=== PATIENT | female | born 1940 | race Caucasian/White ===

== ENCOUNTER 2023-11-17 14:00 | Observation (INO) | payer MEDICARE, OTHER, SELFPAY ==
[2023-11-17] VITALS (32 sets, daily range): BP systolic 101–144; BP diastolic 58–78; PULSE 59–83; TEMP 36.3–36.8; O2SAT 94–100; BMI 27.4; BMI 20.2
--- NOTE | 2023-11-17 14:15 | CT_ITS ---
The [address] [address] Patient Name: CHARIS ALLAN MRN: [id number] date: 1940 Sex: F Assigned Patient Location: ED.MAIN Current Patient Location: Accession/Order Number: [id number] Exam Date: 11/17/2023 15:13 Report Date: 11/17/2023 15:41 At the request of: MADAN MEDELLIN Procedure: CT cervical spine wo con EXAMINATION: CT cervical spine wo con HISTORY: fall with injury COMPARISON: No relevant comparison available. TECHNIQUE: Axial, Coronal, and Sagittal images were created without IV contrast. Dose reduction techniques were achieved by using automated exposure control and/or adjustment of mA and/or kV according to patient size and/or use of iterative reconstruction technique. FINDINGS: VERTEBRAL BODIES: No fracture, bone lesion, or significant listhesis. FACET JOINTS: Marked degenerative facet arthropathy C3 on 4, C4-5 the right. Multilevel moderate degenerative changes. No disruption or abnormal widening. DISCS: Marked narrowing C5-6, C6-7 with prominent posterior disc osteophyte complexes resulting in central canal and foraminal stenosis, marked at C5-6. CENTRAL CANAL: No evidence of hemorrhage. PARASPINAL AREA: No visible mass. CT/CT cervical spine wo con IMPRESSION: 1. No convincing acute abnormality. 2. Moderate to marked degenerative changes of cervical spine with marked central canal and foraminal stenosis at C5-6 secondary to degenerative disc disease and facet arthropathy. Electronically authenticated by: SIRI DUNAWAY Date: 11/17/2023 15:41
--- NOTE | 2023-11-17 14:15 | XR_ITS ---
The [address] [address] Patient Name: CHARIS ALLAN MRN: [id number] date: 1940 Sex: F Assigned Patient Location: ER Current Patient Location: ER Accession/Order Number: [id number] Exam Date: 11/17/2023 15:34 Report Date: 11/17/2023 15:57 At the request of: MADAN MEDELLIN Procedure: XR femur RT 2V PROCEDURE: XR hip RT 2V w/ pelvis, XR femur RT 2V HISTORY: pain fall ; hip pain COMPARISON: None. FINDINGS: BONES:Fracture of the superior and inferior right pubic ramus near the symphysis. Narrowing of the hip joint spaces bilaterally with degenerative osteophytes along the superior rim of the acetabulum bilaterally. SOFT TISSUES:No visible soft tissue swelling. EFFUSION:None visible. OTHER: Negative. XR/XR femur RT 2V IMPRESSION: 1. Acute, mildly displaced fractures involving the right superior and inferior pubic rami. 2. Degenerative changes of the right hip joint. Electronically authenticated by: SIRI DUNAWAY Date: 11/17/2023 15:57
--- NOTE | 2023-11-17 14:15 | ECG_ITS ---
The [facility] Test Date: 2023-11-17 Pat Name: Lindsey Whitlock Department: Room: - Gender: Female [employer]: : 1940 Requested By: Order Number: [id number] Reading MD: MELECIO GE Measurements Intervals [place] Rate: 61 P: 53 MD: 146 QRS: -59 QRSD: 82 T: 62 QT: 400 QTc: 403 Interpretive Statements 1100 Sinus rhythm 1570 with occasional ventricular premature complexes 3433 Septal myocardial infarction, probably old 7200 Abnormal left axis deviation 9150 abnormal ECG Compared to ECG 08/20/2017 08:48:12 Electronically Signed On 11-17-2023 22:55:14 EDT by MELECIO GE
--- NOTE | 2023-11-17 14:15 | XR_ITS ---
The [address] [address] Patient Name: CHARIS ALLAN MRN: [id number] date: 1940 Sex: F Assigned Patient Location: ER Current Patient Location: ER Accession/Order Number: [id number] Exam Date: 11/17/2023 15:34 Report Date: 11/17/2023 15:57 At the request of: MADAN MEDELLIN Procedure: XR hip RT 2V w/ pelvis PROCEDURE: XR hip RT 2V w/ pelvis, XR femur RT 2V HISTORY: pain fall ; hip pain COMPARISON: None. FINDINGS: BONES:Fracture of the superior and inferior right pubic ramus near the symphysis. Narrowing of the hip joint spaces bilaterally with degenerative osteophytes along the superior rim of the acetabulum bilaterally. SOFT TISSUES:No visible soft tissue swelling. EFFUSION:None visible. OTHER: Negative. XR/XR hip RT 2V w/ pelvis IMPRESSION: 1. Acute, mildly displaced fractures involving the right superior and inferior pubic rami. 2. Degenerative changes of the right hip joint. Electronically authenticated by: SIRI DUNAWAY Date: 11/17/2023 15:57
--- NOTE | 2023-11-17 14:15 | CT_ITS ---
The [address] [address] Patient Name: CHARIS ALLAN MRN: [id number] date: 1940 Sex: F Assigned Patient Location: ED.MAIN Current Patient Location: Accession/Order Number: [id number] Exam Date: 11/17/2023 15:13 Report Date: 11/17/2023 15:52 At the request of: MADAN MEDELLIN Procedure: CT head/brain wo con CT HEAD WITHOUT CONTRAST, 11/17/2023. HISTORY: Fall. Head injury. COMPARISON: None. TECHNIQUE: Noncontrast axial CT images obtained through the head. Reconstructions in sagittal and coronal planes. Dose reduction techniques were achieved by using automated exposure control and/or adjustment of mA and/or kV according to patient size and/or use of iterative reconstruction technique. FINDINGS: The paranasal sinuses are clear. Mastoid air cells are clear. No skull fracture. Nasopharynx is normal. Prior cataract surgery. Extracranial soft tissue structures are unremarkable. Mild generalized brain atrophy. No hydrocephalus. No mass effect. No shift of midline. No acute hemorrhage. No mass. Shi matter and white matter differentiation is intact. CT/CT head/brain wo con IMPRESSION: 1. No acute findings. No intracranial hemorrhage. No skull fracture. 2. Mild brain atrophy. Electronically authenticated by: TRACY CONNOR Date: 11/17/2023 15:52
[2023-11-17 14:47] LABS: Basophils Percent Auto 0.3 % (0.2-2.0); Eosinophils Absolute Auto 0.1 10^3/uL (0.0-0.7); Eosinophils Percent Auto 0.5 % (0.9-7.0); Hematocrit 36.7 % (36.0-48.0); Hemoglobin 12.2 g/dL (12.0-16.0); Immature Granulocytes Abs Auto 0.08 10^3/uL (0.00-0.03); Immature Granulocytes Pct Auto 0.8 % (0.0-0.5); Lymphocytes Absolute Auto 1.9 10^3/uL (1.2-3.8); Lymphocytes Percent Auto 17.7 % (20.5-60.0); Mean Corpuscular HGB Conc 33.2 g/dL (29.9-35.2); Mean Corpuscular Hemoglobin 31.3 pg (26.7-34.0); Mean Corpuscular Volume 94.1 fL (81.0-99.0); Mean Platelet Volume 10.2 fL (9.5-13.5); Monocytes Absolute Auto 0.6 10^3/uL (0.3-0.8); Monocytes Percent Auto 5.3 % (1.7-12.0); Neutrophils Percent Auto 75.4 % (43.0-75.0); Platelet Count 193 10^3/uL (150-450); Red Cell Distribution Width 12.9 % (11.0-15.0); White Blood Count 10.5 10^3/uL (4.0-11.0)
[2023-11-17] MEDS: ACETAMINOPHEN 1,000 MG/100 ML PREMIX 400 MG IV (14:51)
[2023-11-17 15:05] LABS: Alanine Aminotransferase 25 U/L (14-59); Alkaline Phosphatase 43 U/L (46-116); Anion Gap 12.7; Aspartate Amino Transferase 30 U/L (15-37); Calcium 9.3 mg/dL (8.5-10.1); Carbon Dioxide 24.6 mmol/L (21.0-32.0); Chloride 108 mmol/L (98-107); Estimated GFR (African America >60 (>=60); Estimated GFR (Non-African Ame 53 (>=60); Globulin 3.1 g/dL; Glucose 152 mg/dL (74-106); Potassium 5.3 mmol/L (3.5-5.1); Sodium 140 mmol/L (136-145); Total Protein 6.1 g/dL (6.4-8.2)
[2023-11-17 15:21] LABS: INR 1.04; Partial Thromboplastin Time 25.1 sec (22.3-36.2)
--- NOTE | 2023-11-17 16:52 | XR_ITS ---
The [address] [address] Patient Name: CHARIS ALLAN MRN: [id number] date: 1940 Sex: F Assigned Patient Location: ED.MAIN Current Patient Location: MS Accession/Order Number: [id number] Exam Date: 11/17/2023 17:15 Report Date: 11/17/2023 18:45 At the request of: MADAN MEDELLIN Procedure: XR ankle RT 2V EXAM: XR ankle RT 2V HISTORY: pain, fall COMPARISON: None. TECHNIQUE: AP and lateral views of the right ankle were obtained. FINDINGS: There is no evidence of an acute fracture or dislocation. The mortise is intact. No osteochondral injury is identified. The subtalar joints are intact. Diffuse osteopenia is noted. Soft tissues appear grossly intact. XR/XR ankle RT 2V IMPRESSION: No apparent acute fracture or dislocation. The joint spaces are intact. Electronically authenticated by: OSVALDO LIRA Date: 11/17/2023 18:45
--- NOTE | 2023-11-17 18:05 | ED_ITS ---
HPI HPI - General Adult General Chief complaint: Extremity Injury, Lower Stated complaint: FALL/POSSIBLE HIP INJURY Time Seen by Provider: 11/17/23 14:08 Source: patient Mode of arrival: ambulance Limitations: no limitations History of Present Illness HPI narrative: 82-year-old female to the emergency department accidental fall. Patient reports she tripped on a runner she had near the front door and fell onto her right side. She reports pain in her right-sided pelvis. She denies any neck or back pain. She did hit her head. She is not a blood thinners. She has no other complaints. She could not walk due to pain in her right hip after the injury. She is otherwise been at her baseline health. Related Data Home Medications ?Medication ?Instructions ?Recorded ?Confirmed buspirone 15 mg tablet 15 mg PO Q12H 11/17/23 11/17/23 glimepiride 2 mg tablet 2 mg PO DAILY 11/17/23 11/17/23 hydrochlorothiazide 12.5 mg capsule 12.5 mg PO DAILY 11/17/23 11/17/23 metoprolol succinate 50 mg 50 mg PO DAILY 11/17/23 11/17/23 tablet,extended release 24 hr pravastatin 20 mg tablet 20 mg PO DAILY 11/17/23 11/17/23 sertraline 50 mg tablet 75 mg PO Q24H 11/17/23 11/17/23 trazodone 50 mg tablet 50 mg PO Q24H PRN sleep 11/17/23 11/17/23 Allergies Allergy/AdvReac Type Severity Reaction Status Date / Time clarithromycin Allergy Severe Hives Verified 11/17/23 14:33 aspirin Allergy Intermediate Palpitation Verified 11/17/23 14:33 s atorvastatin Allergy Intermediate Unknown Verified 11/17/23 14:33 calcium Allergy Intermediate Unknown Verified 11/17/23 14:33 acetaminophen [From Percocet] AdvReac Severe Unknown Verified 11/17/23 14:33 cephalexin [From Keflex] AdvReac Severe Rash Verified 11/17/23 14:33 hydrogen peroxide AdvReac Severe Blister Verified 11/17/23 14:33 ibandronate sodium AdvReac Severe Abdominal Verified 11/17/23 14:33 Pain iodine AdvReac Severe Unknown Verified 11/17/23 14:33 iron AdvReac Severe Abdominal Verified 11/17/23 14:33 Pain meclizine AdvReac Severe Nausea Verified 11/17/23 14:33 oxybutynin AdvReac Severe Abdominal Verified 11/17/23 14:33 Pain oxycodone [From Percocet] AdvReac Severe Unknown Verified 11/17/23 14:33 Penicillins AdvReac Severe Rash Verified 11/17/23 14:33 Sulfa (Sulfonamide AdvReac Severe Rash Verified 11/17/23 14:33 Antibiotics) tetanus toxoid, adsorbed AdvReac Severe Unknown Verified 11/17/23 14:33 alendronate sodium AdvReac Mild Abdominal Verified 11/17/23 14:33 Pain Opioid HPI Opioid Management Most Recent Opioid Data: Last Pain Scale 2 11/17/23 16:30 Last ED Pain Assessment 11/17/23 16:30 Review of Systems ROS Status of ROS 10 or more systems reviewed and unremark able except as noted in history and below Exam Narrative Exam Narrative: Primary Survey Airway Intact Lung sounds clear and equal bilaterally Pulses full and equal to femoral, radial, and dorsalis pedis bilaterally Heart regular rate and rhythm Skin warm, dry, pink GCS 15 Movement and sensation intact to all extremities Patient Fully Exposed. Tenderness to the right-sided hip/pelvis. Scattered bruises. Secondary Survey General: GCS 15; Alert HEENT: Head atraumatic; Facial bones stable; Eyes normal inspection, Pupils round, 4-2mm blt; No evidence of oropharyngeal trauma; No blood in the nares or septal hematoma; Tympanic Membranes intact, no hemotympanum or drainage Neck: Normal inspection; no midline cervical tenderness; No tracheal deviation; No JVD Resp: Normal breath sounds, no wheeze or crackles; No chest wall tenderness, crepitus, or subcutaneous emphysema; No visible evidence of chest wall trauma; Chest rise symmetric; No respiratory distress Heart: Heart rate and rhythm regular; Carotid, radial, femoral, dorsalis pedis pulses +2 and equal bilaterally; No Murmurs Abdomen: Soft; Non-tender No ecchymosis or visible wounds to abdominal wall; No distention, guarding, rigidity, or rebound; Pelvis stable, no pain on compression MSK: Tenderness to the right hip and decreased range of motion, otherwise all major joints with normal ROM. No deformities. No bony tenderness. No tenderness or step-offs to palpation of thoracic or lumbar spine; No ecchymosis or wounds to upper or lower back Neuro: Alert and oriented; Sensation intact and symmetric bilaterally; muscle strengths symmetric bilaterally in the upper and lower extremities. Skin: Color normal; No rash; Warm; Dry Constitutional Vital Signs, click to edit/add: Last Vital Signs Temp 98.3 F 11/17/23 14:04 Pulse 73 11/17/23 17:55 Resp 20 11/17/23 17:55 BP 115/63 11/17/23 17:55 Pulse Ox 97 11/17/23 17:55 O2 Del Method Room Air 11/17/23 14:04 Course Vital Signs Vital signs: Vital Signs Blood Pressure 144/78 H 11/17/23 14:03 Temperature 98.3 F 11/17/23 14:04 Pulse Rate 73 11/17/23 17:55 Respiratory Rate 20 11/17/23 17:55 Blood Pressure 115/63 11/17/23 17:55 Pulse Oximetry 97 11/17/23 17:55 Oxygen Delivery Method Room Air 11/17/23 14:04 Medical Decision Making [facility] Narrative Medical decision making narrative: 82-year-old female to the emergency department with chief complaint of right hip pain after fall. Vital stable, the patient is afebrile. Given her advanced age cannot rule out her head or cervical spine by clinical decision rules alone therefore CT scans were ordered. X-ray of the right hip and pelvis is ordered. X-ray of the femur is ordered as she does have a prosthesis below as well at the knee. Lab work reviewed and noted or abnormalities. CT head: Negative CT C-spine: Negative X-ray pelvis/hip: No hip fracture. She does have inferior and superior pubic rami fractures. X-ray ankle: Negative Findings were discussed with the patient and her family. Her pain was well- controlled with IV Tylenol. I discussed the case with the on-call orthopedic surgeon Dr. Tellez, weightbearing as tolerated. Unfortunately the patient cannot bear weight at this time. She lives alone. She will need admission for PT OT evaluation and likely rehab placement. Case discussed with the hospitalist who agrees admit this patient to his service. [facility] DATA #415 - Emergency Medicine: Utilization of CT for Minor Blunt Head Trauma (Adult) [x] Patient is 18 or older, presenting with minor blunt head trauma. Head CT (including cosigned orders) was ordered by an emergency client care consultant for trauma because (select one or more): [SATISFIES MIPS PERFORMANCE] Reasons: [x] Patient is 65 or older Medical Records Medical records reviewed: Yes I reviewed the patient's medical records Lab Data Lab results reviewed: Yes I reviewed the patient's lab results Labs: Lab Results 11/17/23 11/17/23 Range/Units 14:36 14:40 WBC 10.5 (4.0-11.0) 10^3/uL RBC 3.90 L (4.20-5.40) 10^6/uL Hgb 12.2 (12.0-16.0) g/dL Hct 36.7 (36.0-48.0) % MCV 94.1 (81.0-99.0) fL MCH 31.3 (26.7-34.0) pg MCHC 33.2 (29.9-35.2) g/dL RDW 12.9 (11.0-15.0) % Plt Count 193 (150-450) 10^3/uL MPV 10.2 (9.5-13.5) fL Neut % (Auto) 75.4 H (43.0-75.0) % Lymph % (Auto) 17.7 L (20.5-60.0) % [place] % (Auto) 5.3 (1.7-12.0) % Eos % (Auto) 0.5 L (0.9-7.0) % Baso % (Auto) 0.3 (0.2-2.0) % Neut # (Auto) 8.0 H (1.4-6.5) 10^3/uL Lymph # (Auto) 1.9 (1.2-3.8) 10^3/uL [place]lee # (Auto) 0.6 (0.3-0.8) 10^3/uL Eos # (Auto) 0.1 (0.0-0.7) 10^3/uL Baso # (Auto) 0.0 (0.0-0.1) 10^3/uL Abs Immat Gran (auto) 0.08 H (0.00-0.03) 10^3/uL Imm/Tot Granulo (auto) 0.8 H (0.0-0.5) % PT 11.0 (9.0-11.6) sec INR 1.04 APTT 25.1 (22.3-36.2) sec Sodium 140 (136-145) mmol/L Potassium 5.3 H (3.5-5.1) mmol/L Chloride 108 H (98-107) mmol/L Carbon Dioxide 24.6 (21.0-32.0) mmol/L Anion Gap 12.7 BUN 20.0 H (7.0-18.0) mg/dL Creatinine 1.00 (0.55-1.02) mg/dL Est GFR ( Amer) >60 (>=60) Est GFR (Non-Af Amer) 53 L (>=60) BUN/Creatinine Ratio 20.0 Glucose 152 H (74-106) mg/dL Calcium 9.3 (8.5-10.1) mg/dL Total Bilirubin 1.0 (0.2-1.0) mg/dL AST 30 (15-37) U/L ALT 25 (14-59) U/L Alkaline Phosphatase 43 L (46-116) U/L Total Protein 6.1 L (6.4-8.2) g/dL Albumin 3.0 L (3.4-5.0) g/dL Globulin 3.1 g/dL Albumin/Globulin Ratio 1.0 Imaging Data Imaging: Radiologist's impression: ITS Impressions Cervical Spine CT 11/17/23 14:15 IMPRESSION: 1. No convincing acute abnormality. 2. Moderate to marked degenerative changes of cervical spine with marked central canal and foraminal stenosis at C5-6 secondary to degenerative disc disease and facet arthropathy. Electronically authenticated by: SIRI DUNAWAY Date: 11/17/2023 15:41 Femur X-Ray 11/17/23 14:15 IMPRESSION: 1. Acute, mildly displaced fractures involving the right superior and inferior pubic rami. 2. Degenerative changes of the right hip joint. Electronically authenticated by: SIRI DUNAWAY Date: 11/17/2023 15:[address] 11/17/23 14:15 IMPRESSION: 1. No acute findings. No intracranial hemorrhage. No skull fracture. 2. Mild brain atrophy. Electronically authenticated by: TRACY CONNOR Date: 11/17/2023 15:52 Hip/Pelvis X-Ray 11/17/23 14:15 IMPRESSION: 1. Acute, mildly displaced fractures involving the right superior and inferior pubic rami. 2. Degenerative changes of the right hip joint. Electronically authenticated by: SIRI DUNAWAY Date: 11/17/2023 15:57 ECG Data Attestation: I personally reviewed and interpreted this ECG as follows: (Normal sinus rhythm at a rate of 61. No STEMI. Normal QTc at 403.) Discharge Plan Discharge Chief Complaint: Extremity Injury, Lower Clinical Impression: Closed pelvic fracture, Accidental fall, Ambulatory dysfunction Patient Disposition: Admitted as Observation Condition: Fair Prescriptions / Home Meds: No Action buspirone 15 mg tablet 15 mg PO Q12H glimepiride 2 mg tablet 2 mg PO DAILY hydrochlorothiazide 12.5 mg capsule 12.5 mg PO DAILY metoprolol succinate 50 mg tablet extended release 24 hr 50 mg PO DAILY pravastatin 20 mg tablet 20 mg PO DAILY sertraline 50 mg tablet 75 mg PO Q24H trazodone 50 mg tablet 50 mg PO Q24H PRN (Reason: sleep) Print Language: Hungarian Referrals: RAMÓN CINTRON [Primary Care Provider] - 1 week
--- NOTE | 2023-11-17 20:17 | PM.ORCN ---
History of Present Illness HPI Consult date: 11/17/23 Chief complaint: FALL/POSSIBLE HEAD INJURY Public rami fracture Narrative: Patient is an 82-year-old female that presented to the ER today status post mechanical fall. She states that she fell over a rug runner and immediately felt pain in her right hip/groin area. She was unable to get up or bear weight. Orthopedics was consulted after x-rays in the ER revealed right superior/inferior pubic rami fractures. Patient was admitted for observation and disposition as she lives alone and cannot bear weight on her right lower extremity currently. Patient denies further injury or pain. [facility] Medical History (Updated 11/17/23 @ 19:01 by Sailaja Mattson) Disc herniation Irritable bowel ?K58.9 - Irritable bowel syndrome without diarrhea (ICD-10) Diverticulitis ?K57.92 - Diverticulitis of intestine, part unspecified, without perforation or abscess without bleeding (ICD-10) Diabetes ?E11.9 - Type 2 diabetes mellitus without complications (ICD-10) Surgical History (Updated 11/17/23 @ 19:01 by Sailaja Mattson) History of knee replacement ?Z96.659 - Presence of unspecified artificial knee joint (ICD-10) H/O shoulder replacement ?Z96.619 - Presence of unspecified artificial shoulder joint (ICD-10) Social History Highest level of school completed/degree received: high school graduate Meds Home Medications and Allergies Home Medications ?Medication ?Instructions ?Recorded ?Confirmed ?Type buspirone 15 mg tablet 15 mg PO Q12H 11/17/23 11/17/23 History glimepiride 2 mg tablet 2 mg PO DAILY 11/17/23 11/17/23 History hydrochlorothiazide 12.5 mg capsule 12.5 mg PO DAILY 11/17/23 11/17/23 History metoprolol succinate 50 mg 50 mg PO DAILY 11/17/23 11/17/23 History tablet,extended release 24 hr pravastatin 20 mg tablet 20 mg PO DAILY 11/17/23 11/17/23 History sertraline 50 mg tablet 75 mg PO Q24H 11/17/23 11/17/23 History trazodone 50 mg tablet 50 mg PO Q24H PRN sleep 11/17/23 11/17/23 History Allergies Allergy/AdvReac Type Severity Reaction Status Date / Time clarithromycin Allergy Severe Hives Verified 11/17/23 14:33 aspirin Allergy Intermediate Palpitation Verified 11/17/23 14:33 s atorvastatin Allergy Intermediate Unknown Verified 11/17/23 14:33 calcium Allergy Intermediate Unknown Verified 11/17/23 14:33 acetaminophen [From Percocet] AdvReac Severe Unknown Verified 11/17/23 14:33 cephalexin [From Keflex] AdvReac Severe Rash Verified 11/17/23 14:33 hydrogen peroxide AdvReac Severe Blister Verified 11/17/23 14:33 ibandronate sodium AdvReac Severe Abdominal Verified 11/17/23 14:33 Pain iodine AdvReac Severe Unknown Verified 11/17/23 14:33 iron AdvReac Severe Abdominal Verified 11/17/23 14:33 Pain meclizine AdvReac Severe Nausea Verified 11/17/23 14:33 oxybutynin AdvReac Severe Abdominal Verified 11/17/23 14:33 Pain oxycodone [From Percocet] AdvReac Severe Unknown Verified 11/17/23 14:33 Penicillins AdvReac Severe Rash Verified 11/17/23 14:33 Sulfa (Sulfonamide AdvReac Severe Rash Verified 11/17/23 14:33 Antibiotics) tetanus toxoid, adsorbed AdvReac Severe Unknown Verified 11/17/23 14:33 alendronate sodium AdvReac Mild Abdominal Verified 11/17/23 14:33 Pain Exam Narrative Exam Narrative: On exam patient is in no distress laying in the bed, age-appropriate, alert and oriented x 3. On inspection of the right hip there is no swelling or ecchymosis, skin is intact, no erythema or warmth to touch. There is tenderness to palpation of the right superior/inferior pubic rami. No hip joint tenderness to palpation. Limited right hip ROM. Patient can activate her quad but does not flex hip very much secondary to pain. Positive logroll test. 2+ DP pulses palpated bilaterally. Patient distally neurovascularly intact with 5/5 strength DF/PF. Constitutional Vital Signs, click to edit/add: Last Vital Signs Temp 97.8 F 11/17/23 19:43 Pulse 79 11/17/23 19:43 Resp 18 11/17/23 19:43 BP 101/66 11/17/23 19:43 Pulse Ox 95 11/17/23 19:48 O2 Del Method Room Air 11/17/23 19:48 Results Labs Labs: Abnormal lab results 11/17/23 Range/Units 14:36 RBC 3.90 L (4.20-5.40) 10^6/uL Neut % (Auto) 75.4 H (43.0-75.0) % Lymph % (Auto) 17.7 L (20.5-60.0) % Eos % (Auto) 0.5 L (0.9-7.0) % Neut # (Auto) 8.0 H (1.4-6.5) 10^3/uL Abs Immat Gran (auto) 0.08 H (0.00-0.03) 10^3/uL Imm/Tot Granulo (auto) 0.8 H (0.0-0.5) % Potassium 5.3 H (3.5-5.1) mmol/L Chloride 108 H (98-107) mmol/L BUN 20.0 H (7.0-18.0) mg/dL Est GFR (Non-Af Amer) 53 L (>=60) Glucose 152 H (74-106) mg/dL Alkaline Phosphatase 43 L (46-116) U/L Total Protein 6.1 L (6.4-8.2) g/dL Albumin 3.0 L (3.4-5.0) g/dL H & H 11/17/23 Range/Units 14:36 Hgb 12.2 (12.0-16.0) g/dL Hct 36.7 (36.0-48.0) % Coagulation 11/17/23 Range/Units 14:40 INR 1.04 All other labs normal. Assessment and Plan Assessment and Plan (1) Closed pelvic fracture: Assessment and Plan: X-ray of the right hip/pelvis reviewed by myself and reveal mildly displaced superior/inferior pubic rami fractures - Will treat nonoperatively - WBAT - PT/OT evals - Pain control per Medicine - Follow up outpatient in 3-[address] Tellez to repeat Xray and reassess her progress. Discussed with my supervising physician, Dr. Tellze, who agrees with plan.
[2023-11-17] MEDS: TRAZODONE HCL 50 MG TABLET PO (22:17)
[2023-11-17] MEDS: 0.9 % SODIUM CHLORIDE 1,000 ML 75 ML IV (22:17)
[2023-11-17] MEDS: ACETAMINOPHEN 325 MG TABLET 650 MG PO (22:18)
[2023-11-17] MEDS: ENOXAPARIN SODIUM 40 MG/0.4 ML SYRINGE SUBQ (22:18)
[2023-11-17] MEDS: BUSPIRONE HCL 15 MG TABLET PO (22:18)
[2023-11-17 22:41] LABS: Glucometer 175 mg/dL (74-106)
[2023-11-17] MEDS: INSULIN ASPART 300 UNIT/3 ML PEN SUBQ (22:45)
[2023-11-18 04:42] VITALS: O2SAT 95
[2023-11-18 05:23] VITALS: BP 116/66; PULSE 68; TEMP 36.6; O2SAT 95
[2023-11-18 06:59] LABS: Alanine Aminotransferase 18 U/L (14-59); Albumin Level 2.6 g/dL (3.4-5.0); Alkaline Phosphatase 41 U/L (46-116); Anion Gap 12.4; Aspartate Amino Transferase 15 U/L (15-37); Bilirubin Total 1.2 mg/dL (0.2-1.0); Calcium 8.9 mg/dL (8.5-10.1); Carbon Dioxide 26.5 mmol/L (21.0-32.0); Chloride 110 mmol/L (98-107); Estimated GFR (African America >60 (>=60); Estimated GFR (Non-African Ame >60 (>=60); Globulin 2.5 g/dL; Glucose 116 mg/dL (74-106); Potassium 3.9 mmol/L (3.5-5.1); Sodium 145 mmol/L (136-145); Total Protein 5.1 g/dL (6.4-8.2)
[2023-11-18 08:00] VITALS: PULSE 70
[2023-11-18] MEDS: OXYCODONE HCL 5 MG TABLET PO ×2 (09:40→16:36)
[2023-11-18] MEDS: ENOXAPARIN SODIUM 40 MG/0.4 ML SYRINGE SUBQ (09:40)
[2023-11-18] MEDS: SERTRALINE HCL 50 MG TABLET 75 MG PO (09:40)
[2023-11-18] MEDS: BUSPIRONE HCL 15 MG TABLET PO (09:41)
[2023-11-18] MEDS: METOPROLOL SUCCINATE 50 MG TAB.ER.24H PO (09:41)
--- NOTE | 2023-11-18 10:00 | CM.NOTE ---
Rounds made with Dr. Toscano, PT and OT awaiting evaluation. Dr. Toscano discussed with pt about skilled rehab and out of pocket expense d/t pt not having 3 day stay with Medicare. Pt voices concerns with money and her spouse just . Pt will discuss plan with family. Awaiting PT and OT notes for further plan of care.
--- NOTE | 2023-11-18 10:56 | P.HP_ITS ---
HPI H&P: HPI History of Present Illness Chief complaint: FALL/POSSIBLE HEAD INJURY Public rami fracture Narrative: 82-year-old female who lives by herself presented to ER after she had a fall at the front of her house. She did hit her head when she fell. She was unable to get up after fall because of pain. She was brought in by EMS and was found to have right superior and inferior pubic rami fracture and was in considerable pain with severely restricted range of motion because of pain. Patient was admitted for observation overnight for pain control, PT/OT evaluation. Patient seen earlier today. She reports her pain is controlled when she is not moving. She has not attempted to ambulate. She had not been seen by physical therapy/Occupational Therapy. Continue with conservative care, pain control. Orthopedic surgery consulted. Opioid HPI Opioid Management Most Recent Pain and Opioid Data: Last Pain Scale 9 11/18/23 09:40 Last Pain Assessment 11/18/23 09:00 Last ED Pain Assessment 11/17/23 16:30 Last MAR Pain Assessment 11/18/23 09:40 Last ORT Total Score 0 11/17/23 18:58 Last ORT Risk Category Low Risk 11/17/23 18:58 Review of Systems ROS Status of ROS 10 or more systems reviewed and unremark able except as noted in history and below PFSH PFS Medical History (Updated 11/18/23 @ 11:01 by Shaikh Everton MD) HLD (hyperlipidemia) ?E78.5 - Hyperlipidemia, unspecified (ICD-10) Major depression ?F32.9 - Major depressive disorder, single episode, unspecified (ICD-10) Major depress dis, severe ?F32.2 - Major depressive disorder, single episode, severe without psychotic features (ICD-10) Disc herniation Irritable bowel ?K58.9 - Irritable bowel syndrome without diarrhea (ICD-10) Diverticulitis ?K57.92 - Diverticulitis of intestine, part unspecified, without perforation or abscess without bleeding (ICD-10) Diabetes ?E11.9 - Type 2 diabetes mellitus without complications (ICD-10) Surgical History (Updated 11/17/23 @ 19:01 by Sailaja Mattson) History of knee replacement ?Z96.659 - Presence of unspecified artificial knee joint (ICD-10) H/O shoulder replacement ?Z96.619 - Presence of unspecified artificial shoulder joint (ICD-10) Social History Highest level of school completed/degree received: high school graduate Meds Home Medications and Allergies Home Medications ?Medication ?Instructions ?Recorded ?Confirmed ?Type buspirone 15 mg tablet 15 mg PO Q12H 11/17/23 11/17/23 History glimepiride 2 mg tablet 2 mg PO DAILY 11/17/23 11/17/23 History hydrochlorothiazide 12.5 mg capsule 12.5 mg PO DAILY 11/17/23 11/17/23 History metoprolol succinate 50 mg 50 mg PO DAILY 11/17/23 11/17/23 History tablet,extended release 24 hr pravastatin 20 mg tablet 20 mg PO DAILY 11/17/23 11/17/23 History sertraline 50 mg tablet 75 mg PO Q24H 11/17/23 11/17/23 History trazodone 50 mg tablet 50 mg PO Q24H PRN sleep 11/17/23 11/17/23 History Allergies Allergy/AdvReac Type Severity Reaction Status Date / Time clarithromycin Allergy Severe Hives Verified 11/17/23 14:33 aspirin Allergy Intermediate Palpitation Verified 11/17/23 14:33 s atorvastatin Allergy Intermediate Unknown Verified 11/17/23 14:33 calcium Allergy Intermediate Unknown Verified 11/17/23 14:33 acetaminophen [From Percocet] AdvReac Severe Unknown Verified 11/17/23 14:33 cephalexin [From Keflex] AdvReac Severe Rash Verified 11/17/23 14:33 hydrogen peroxide AdvReac Severe Blister Verified 11/17/23 14:33 ibandronate sodium AdvReac Severe Abdominal Verified 11/17/23 14:33 Pain iodine AdvReac Severe Unknown Verified 11/17/23 14:33 iron AdvReac Severe Abdominal Verified 11/17/23 14:33 Pain meclizine AdvReac Severe Nausea Verified 11/17/23 14:33 oxybutynin AdvReac Severe Abdominal Verified 11/17/23 14:33 Pain oxycodone [From Percocet] AdvReac Severe Unknown Verified 11/17/23 14:33 Penicillins AdvReac Severe Rash Verified 11/17/23 14:33 Sulfa (Sulfonamide AdvReac Severe Rash Verified 11/17/23 14:33 Antibiotics) tetanus toxoid, adsorbed AdvReac Severe Unknown Verified 11/17/23 14:33 alendronate sodium AdvReac Mild Abdominal Verified 11/17/23 14:33 Pain Exam Constitutional Vital Signs, click to edit/add: Last Vital Signs Temp 97.8 F 11/18/23 05:23 Pulse 70 11/18/23 08:00 Resp 18 11/18/23 08:00 BP 116/66 11/18/23 05:23 Pulse Ox 95 11/18/23 05:23 O2 Del Method Room Air 11/18/23 05:23 Documenting provider has reviewed patient's vital signs: yes Common normals: no apparent distress and oriented x3 General appearance: cooperative and frail appearing HENID Common normals: normocephalic and head/scalp atraumatic Head and scalp: normocephalic and atraumatic Respiratory Common normals: normal respiratory effort and clear to auscultation bilaterally Effort & inspection: able to speak in complete sentences Auscultation: clear to auscultation bilaterally Cardio Common normals: regular rate, S1 normal heart sound and S2 normal heart sound Rate: regular rate Heart sounds: S1 normal and S2 normal GI Common normals: Normal to inspection, nondistended, normoactive bowel sounds present, soft to palpation, non-tender and no hepatosplenomegaly Palpation: soft and no hepatosplenomegaly Extremity Common normals: no clubbing, cyanosis or edema Other: Severely restricted range of motion at right hip due to pain. Neuro Common normals: oriented x3, moves all extremities and no focal motor deficits Psych Common normals: mental status grossly normal, denies hallucinations, denies homicidal ideation and denies suicidal ideation Results Labs Labs: Short CBC 11/17/23 Range/Units 14:36 WBC 10.5 (4.0-11.0) 10^3/uL Hgb 12.2 (12.0-16.0) g/dL Hct 36.7 (36.0-48.0) % Plt Count 193 (150-450) 10^3/uL BMP 11/17/23 11/18/23 14:36 05:32 Sodium 140 145 Potassium 5.3 H 3.9 Chloride 108 H 110 H Carbon Dioxide 24.6 26.5 BUN 20.0 H 23.0 H Creatinine 1.00 0.82 Glucose 152 H 116 H Calcium 9.3 8.9 Liver Function 11/17/23 11/18/23 Range/Units 14:36 05:32 Total Bilirubin 1.0 1.2 H (0.2-1.0) mg/dL AST 30 15 (15-37) U/L ALT 25 18 (14-59) U/L Alkaline Phosphatase 43 L 41 L (46-116) U/L Albumin 3.0 L 2.6 L (3.4-5.0) g/dL Assessment and Plan Assessment and Plan (1) Inferior pubic ramus fracture: Assessment and Plan: Right inferior superior and inferior pubic rami fracture. Restricted range of motion due to pain. Continue with pain control. PT/OT evaluation. Orthopedic surgery consulted and awaiting their recommendation. Qualifiers: Encounter type: subsequent encounter Fracture type: closed Laterality: right Fracture healing: with routine healing Qualified Code(s): S32.591D - Other specified fracture of right pubis, subsequent encounter for fracture with routine healing (2) Fracture of superior pubic ramus: Assessment and Plan: Awaiting orthopedic surgery per their recommendation. Continue with pain control. PT/OT evaluation Qualifiers: Encounter type: subsequent encounter Fracture type: closed Laterality: right Fracture healing: with routine healing Qualified Code(s): S32.511D - Fracture of superior rim of right pubis, subsequent encounter for fracture with routine healing (3) Accidental fall: Assessment and Plan: Accidental fall at home. CT head negative for acute intracranial pathology. Trauma workup revealed inferior and superior pubic rami fracture. Awaiting orthopedic recommendation. Conservative management for now. Continue with pain control, PT/OT evaluation Qualifiers: Encounter type: subsequent encounter Qualified Code(s): W19.XXXD - Unspecified fall, subsequent encounter (4) Diabetes: Assessment and Plan: On oral hypoglycemic. Continue with sliding scale insulin while inpatient. 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 Mood is stable. Qualifiers: Major depression recurrence: recurrent Active/Remission status: in full remission Qualified Code(s): F33.42 - Major depressive disorder, recurrent, in full remission (6) HLD (hyperlipidemia): Assessment and Plan: Continue with pravastatin. Qualifiers: Hyperlipidemia type: unspecified Qualified Code(s): E78.5 - Hyperlipidemia, unspecified
--- NOTE | 2023-11-18 11:04 | SWNOTE1 ---
SW stopped in to speak with pt in regards to dc planning. Case management and doctor have been in room and have explained to pt that she is in observation and it will be private pay for pt to go [facility]. She has voiced she does not have the funds to do this. SW spoke to her about home health coming in as she will be discharged today. Pt is agreeable to this and reviewed list from medicare.gov with star ratings and would like [facility]. Referral sent to [facility]. Referral included face sheet, ED note, H&P, provider notes, and PT/OT notes. Medicare Outpatient Observation Notice reviewed and discussed with patient. Pt. verbalized understanding and signed the form. Original given to patient and copy placed in patient?s chart. Pt did talk with SW about her passing away recently (I do believe she said 2 years ago). Pt's had [facility] and then [facility]. She has several kids and grandkids, but has voiced they do have lives of their own and some with health issues and mental issues. 3 of her grandkids are nurses or nurse practitioners. Some of them are coming later today to hospital. SW (and doctor and case management) did discuss someone staying with her for a bit or alternating checking on her at home. She is going to speak with them. Pt also lost a daughter to Covid. SW to stop by later today to speak with family.
[2023-11-18 12:03] VITALS: O2SAT 94
--- NOTE | 2023-11-18 12:04 | SWNOTE1 ---
Pt did voice she has had meals on wheels in past and she would like that again. SW called [facility] and left message with pt's name and phone number to contact.
--- NOTE | 2023-11-18 12:10 | SWNOTE1 ---
SW called and left a message for Sosa for meals on wheels at [facility]. Left her with pt's information and that she was discharging today.
--- NOTE | 2023-11-18 12:30 | SWNOTE1 ---
[facility] is able to accept. SW to let pt know. SW let nursing know as well. Family will be here around 3 or 4 to transport.
--- NOTE | 2023-11-18 12:33 | SWNOTE1 ---
SW received call from [facility] and they are able to accept.
--- NOTE | 2023-11-18 12:35 | SWNOTE1 ---
Pt will be discharged today with [facility] and a referral to meals on wheels.
[2023-11-18 13:08] LABS: Glucometer 225 mg/dL (74-106)
[2023-11-18] MEDS: INSULIN ASPART 300 UNIT/3 ML PEN SUBQ (13:09)
[2023-11-18 14:00] VITALS: BP 100/51; PULSE 64; TEMP 36.8; O2SAT 64
--- NOTE | 2023-11-19 15:21 | CM.DCFOLLOWU ---
1st attempt 11/19/23
--- NOTE | 2023-11-20 13:36 | CM.DCFOLLOWU ---
2nd attempt 11/20/23
== END 2023-11-18 16:45 | disposition home health service (06) ==
LOC: ER 18:10 → MS 18:32
PROVIDERS: Admitting Provider Internal Medicine; Emergency Provider Student in an Organized Health Care Education/Training Program; PCP Internal Medicine; Visit Provider Internal Medicine
DX: S32.591A Other specified fracture of right pubis, initial encounter for closed fracture (principal); S32.511A Fracture of superior rim of right pubis, initial encounter for closed fracture; E11.9 Type 2 diabetes mellitus without complications; F33.42 Major depressive disorder, recurrent, in full remission; E78.5 Hyperlipidemia, unspecified; R26.2 Difficulty in walking, not elsewhere classified; Z79.899 Other long term (current) drug therapy; Z79.84 Long term (current) use of oral hypoglycemic drugs; W01.10XA Fall on same level from slipping, tripping and stumbling with subsequent striking against unspecified object, initial encounter
CPT/HCPCS: 36415; 70450; 72125; 73502; 73552; 73600; 80053; 82948; 85025; 85610; 85730; 93005; 94761; 96365; 96372; 97163; 97165; 99285; G0378; J0131; J1650